=== PATIENT | male | born 1990 | race Caucasian/White ===

== ENCOUNTER 2016-10-29 02:10 | Emergency (ER) | payer OTHER ==
[~2016-10-29] VITALS: Ht 175.3 cm; Wt 119.1 kg
[2016-10-29] MEDS ORDERED: MEDROL DOSEPAK4 MG PO (03:20)
[2016-10-29] MEDS ORDERED: SINGULAIR10 MG PO (03:21)
[2016-10-29 03:36] VITALS: BP 136/89
== END 2016-10-29 03:37 | disposition home or self-care (01) ==
LOC: EXP 02:10 → EME 02:10 → EXP 03:37
DX: J45.901 Unspecified asthma with (acute) exacerbation (principal)
CPT/HCPCS: 94640; 94640 76; 99281; 99284; J7512

== ENCOUNTER 2016-11-12 22:59 | Emergency (ER) | payer OTHER ==
[~2016-11-12] VITALS: Ht 175.3 cm; Wt 119.0 kg
[~2016-11-12 22:59] MED LIST: MEDROL DOSEPAK4 MG PO; SINGULAIR10 MG PO
[2016-11-12] MEDS ORDERED: NAPROSYN500 MG PO (23:48)
[2016-11-12] MEDS ORDERED: PREDNISONE20 MG PO (23:55)
[2016-11-12] MEDS ORDERED: COLCHICINE0.6 M1 PO (23:55)
[2016-11-12] MEDS ORDERED: PROVENTIL HFA6.7 GM IH (23:56)
[2016-11-13 00:34] VITALS: BP 141/110
== END 2016-11-13 00:35 | disposition home or self-care (01) ==
LOC: EME 22:59
DX: J45.901 Unspecified asthma with (acute) exacerbation (principal); M10.9 Gout, unspecified
CPT/HCPCS: 80048; 85027; 94640; 99281; 99284